=== PATIENT | female | born 1955 | race Hispanic/Latino ===

== ENCOUNTER 2017-03-10 10:46 | Inpatient (IN) | payer OTHER, SELFPAY ==
[2017-03-10 11:13] LABS: #Basophils 0.1 thou/uL (0.0-0.2); #Eosinphils 0.2 thou/uL (0.0-0.7); #Lymphocytes 3.3 thou/uL (1.20-3.40); #Monocytes 0.5 thou/uL (0.11-0.59); #Neutrophils 5.2 thou/uL (1.40-6.50); %Basophils 0.8 % (0.0-1.0); %Lymphocytes 35.7 % (21.0-51.0); %Monocytes 5.7 % (0.0-10.0); %Neutrophils 55.7 % (42.0-75.0); Hemoglobin 16.5 g/dL (12.0-16.0); Mean Corpuscular HGB CONC 33.8 g/dL (32.0-36.0); Mean Corpuscular Hemoglobin 34.3 pg (27.0-31.0); Mean Platelet Volume 8.2 fL (7.4-10.4); Platelet Count 264 thou/uL (130-400); RBC Distribution Width 12.9 % (11.5-14.5); Red Blood Cell (RBC) Count 4.81 mill/uL (4.20-5.40); White Blood Cell (WBC) Count 9.3 thou/uL (4.8-10.8)
[2017-03-10 11:21] LABS: PTT 30.8 SEC (22.9-36.1); Prothrombin Time 13.4 SEC (12.0-14.7)
[2017-03-10 11:38] LABS: ALT (SGPT) 76 U/L (8-55); AST (SGOT) 67 U/L (5-34); Albumin 4.2 g/dL (3.5-5.0); Alkaline Phosphatase 141 U/L (40-150); Anion Gap 20 mmol/L (10-20); BUN (Urea Nitrogen) 12 mg/dL (9.8-20.1); Bilirubin, Total 0.5 mg/dL (0.2-1.2); Calc. Creatinine Clearance 0 mL/min (70-130); Calcium 9.7 mg/dL (7.8-10.44); Carbon Dioxide 18 mmol/L (22-29); Chloride 108 mmol/L (98-107); Estimated GFR-MDRD 63; Globulin 4.6 g/dL (2.4-3.5); Glucose 175 mg/dL (70-105); Potassium 4.2 mmol/L (3.5-5.1); Protein, Total 8.8 g/dL (6.0-8.3); Sodium 142 mmol/L (136-145)
[2017-03-10 11:43] LABS: CKMB 0.9 ng/mL (0-6.6)
--- NOTE | 2017-03-10 12:05 | RAD ---
1 VIEW CHEST: Date: 03/10/17 COMPARISON: 08/29/09. HISTORY: Intermittent chest pain. FINDINGS: Normal cardiac silhouette. Pulmonary vessels and pulmonary hilum are normal. Costophrenic angles are clear. No mass. No consolidation. No pneumothorax or osseous abnormalities. IMPRESSION: No acute cardiopulmonary process. POS: [facility]
[2017-03-10] MEDS ORDERED: Diltiazem HCl 125 MG, Admixture Fee 1 EACH in Sodium Chloride 0.9% 100 ML IVPB SCH (12:45)
[2017-03-10 14:53] LABS: Troponin I 0.022 ng/mL (< 0.028)
[2017-03-10 15:32] VITALS: BMI 46.2
[2017-03-10] MEDS ORDERED: Ondansetron ODT 4 MG TAB SL PRN (16:42)
[2017-03-10] MEDS ORDERED: Acetaminophen 325 MG TAB PO PRN (16:42)
[2017-03-10] MEDS ORDERED: Ondansetron HCl/PF 4 MG/2 ML Vial IVP PRN ×2 (16:42→18:56)
[2017-03-10 17:45] LABS: Troponin I 0.056 ng/mL (< 0.028)
[2017-03-10] MEDS ORDERED: hydrALAZINE 20 MG/ML VIAL SLOW IVP PRN (18:56)
[2017-03-10] MEDS ORDERED: Acetaminophen 500 MG TAB PO PRN (18:56)
[2017-03-10] MEDS ORDERED: Ondansetron ODT 4 MG TAB PO PRN (18:56)
[2017-03-10] MEDS ORDERED: cloNIDine 0.1 MG TAB PO PRN (18:56)
[2017-03-10] MEDS ORDERED: Diltiazem 125 MG in Sodium Chloride 0.9% 100 ML IVPB SCH (19:00)
[2017-03-10] MEDS: Famotidine 20 MG TAB PO SCH (22:24)
[2017-03-10] MEDS: Enoxaparin Sodium 100 MG/ML SYRINGE SC SCH (22:25)
--- NOTE | 2017-03-10 22:51 | HP ---
DATE OF ADMISSION: 03/10/2017 PRIMARY CARE PHYSICIAN: Ruth Ann olmedo. CHIEF COMPLAINT: Palpitations and dizziness. HISTORY OF PRESENT ILLNESS: This is a 61-year-old female who presents to [facility] Emergency Department complaining of approximately 2-3 day history of increasing palpitations, short ness of breath, and dizziness. Patient states she has actually noticed symptoms over the last 2 yamil hs intermittently with palpitations, chest pressure lasting up to 20-30 minutes, resolving spontaneou sly with rest. Patient denied any specific chest pain, jaw, or left-arm discomfort. Patient denied any recent exposure history, travel, increased activity level, or increased caffeine intake. Patient denies any known coronary artery disease or lung or cardiac problems. Patient states that she was d iagnosed with flu approximately 2 weeks prior to this evaluation with fever, cough, and congestion. Patient does state that she has noticed the palpitations even prior to the diagnosis of the flu. Miranda de la vega denies any tobacco use, but does drink alcohol at least daily. Patient denied any strong family history of coronary artery disease, prior evaluation for personal coronary artery disease including treadmill stress testing. Patient denied taking any specific home medications or remedies. In the e mergency room, patient underwent general evaluation including initial EKG showing evidence of atrial fibrillation with rapid ventricular response with heart rates in the 160s. Patient received Cardizem bolus of 20 mg x1 dose followed by Cardizem infusion of 5 mg per hour. Patient also received aspiri n 324 mg and intravenous normal saline x1 liter. Patient was transferred to the telemetry unit for f urther evaluation. PAST MEDICAL HISTORY: 1. Alcohol use. 2. Hyperglycemia. PAST SURGICAL HISTORY: Reviewed and negative. CURRENT MEDICATIONS: Reviewed and negative. ALLERGIES: No known drug allergies. FAMILY HISTORY: No inheritable diseases per patient report. SOCIAL HISTORY: Patient is , accompanied by her and family in the hospital. Drinks 5 -6 times per week. No tobacco or illicit drug use. 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 REVIEW OF SYSTEMS: The following complete review of systems was otherwise negative, except as stated per HPI: Constitutional: Weight loss or gain, ability to conduct usual activities. Skin: Rash, i tching. Eyes: Double vision, pain. ENT/Mouth: Nose bleeding, neck stiffness, pain, tenderness. C ardiovascular: Palpitations, dyspnea on exertion, orthopnea. Respiratory: Shortness of breath, whe ezing, cough, hemoptysis, fever, or night sweats. Gastrointestinal: Poor appetite, abdominal pain, heartburn, nausea, vomiting, constipation, or diarrhea. Genitourinary: Urgency, frequency, dysuria, nocturia. Musculoskeletal: Pain, swelling. Neurologic/Psychiatric: Anxiety, depression. Allergy /Immunologic: Skin rash, bleeding tendency. PHYSICAL EXAMINATION: VITAL SIGNS: Currently, blood pressure 133/83, pulse 90, respiratory rate 18, temperature 98.2 degre es Fahrenheit, O2 saturation 95% on room air. GENERAL APPEARANCE: This is a 61-year-old female, alert and oriented x3, pleasant, conversa nt, in no acute distress. HEENT: Pupils are equal, round, and reactive to light and accommodation. Extraocular muscles are in tact. No scleral icterus, no conjunctival injection. Nares patent. OP is clear. Teeth in fair rep air. NECK: Supple, no cervical adenopathy, no thyromegaly, no carotid bruits, no JVD appreciated. Cervic al spine with full active and passive range of motion. No meningeal signs appreciated. CHEST: Lungs are clear to auscultation bilaterally. CARDIOVASCULAR: S1, S2 with irregular rate and rhythm. ABDOMEN: Obese, soft, nontender, nondistended. Bowel sounds are positive in all four quadrants. Th ere is no hepatosplenomegaly, no abdominal bruits, no rebound or guarding appreciated. EXTREMITIES: Warm and dry with fair turgor. No clubbing, cyanosis, or asymmetric edema appreciated. Pulses palpable distally at the dorsalis pedis, posterior tibial, and popliteal arteries bilaterall y. Capillary refill less than 2 seconds. NEUROLOGIC: Cranial nerves II-XII are grossly intact. No focal or lateralizing signs appreciated. PERTINENT LABORATORY AND X-RAY FINDINGS: Sodium 142, potassium 4.2, chloride 108, CO2 of 18, anion g ap 20, BUN 12, creatinine 0.91, estimated GFR 63, glucose 175, calcium 9.7. AST 67, ALT 76, alkaline phosphatase 141. Troponin I ranged between 0.010-0.056. Albumin 4.2. CBC showed a white blood jessica l count of 9.3, hemoglobin 16.5, hematocrit 49, MCV 102, platelet count 264 with normal differential. PT 13.4, INR 1.0, PTT 30.8. Portable chest x-ray dated 03/10/2017 showed no acute cardiopulmonary process. EKG dated 03/10/2017, by my interpretation shows atrial fibrillation with rapid ventricular response, heart rates in the 160s with normal R-wave progression noted in the precordial leads. Nor mal axis. T-wave changes in leads I, leads II, and aVL. T-wave changes also noted in leads V3 throu gh V6. ASSESSMENT AND PLAN: 1. Question of new-onset atrial fibrillation with rapid ventricular response. We will admit to the telemetry unit. We will continue Cardizem infusion at 5 mg per hour. Initiate Lovenox 90 mg subcuta neously q.12 hours. Check TSH, magnesium level, and 2D transthoracic echocardiogram in the a.m. Con sult Cardiology service in the a.m. for further evaluation and recommendations. Patient may benefit from ischemic workup after rate control measures. 2. Metabolic acidosis. Suspect secondary to #1. We will continue symptomatic and supportive measur es. Encourage increased free water intake. 3. Transaminitis. Suspect secondarily to increased alcohol intake. Repeat LFTs in the a.m. 4. Elevated troponin I. Suspect demand ischemic state in the context of rapid atrial fibrillation. 5. Alcohol use. Exact quantity unclear. We will continue to monitor symptomatically. Consider Ati van p.r.n. if withdrawal symptoms noted. 6. Prophylaxis. Sequential compression devices while in bed. Pepcid 20 mg p.o. b.i.d. 7. Code status is FULL. Surrogate medical decision maker is patient's spouse.
[2017-03-11 05:46] LABS: ALT (SGPT) 55 U/L (8-55); AST (SGOT) 44 U/L (5-34); Albumin 3.4 g/dL (3.5-5.0); Alkaline Phosphatase 114 U/L (40-150); Anion Gap 13 mmol/L (10-20); BUN (Urea Nitrogen) 12 mg/dL (9.8-20.1); Bilirubin, Total 0.6 mg/dL (0.2-1.2); Calc. Creatinine Clearance 123 mL/min (70-130); Carbon Dioxide 20 mmol/L (22-29); Chloride 109 mmol/L (98-107); Estimated GFR-MDRD 86; Globulin 3.8 g/dL (2.4-3.5); Glucose 102 mg/dL (70-105); Magnesium 2.3 mg/dL (1.6-2.6); Potassium 4.3 mmol/L (3.5-5.1); Protein, Total 7.2 g/dL (6.0-8.3); Sodium 138 mmol/L (136-145)
[2017-03-11 06:50] LABS: Folate (Folic Acid) 6.2 ng/mL (7.0-31.4)
[2017-03-11 07:39] LABS: Hemoglobin 15.2 g/dL (12.0-16.0); Mean Corpuscular HGB CONC 32.8 g/dL (32.0-36.0); Mean Corpuscular Hemoglobin 33.3 pg (27.0-31.0); Mean Platelet Volume 8.7 fL (7.4-10.4); Platelet Count 225 thou/uL (130-400); RBC Distribution Width 12.9 % (11.5-14.5); Red Blood Cell (RBC) Count 4.58 mill/uL (4.20-5.40); White Blood Cell (WBC) Count 8.6 thou/uL (4.8-10.8)
[2017-03-11 07:45] LABS: Band 5 % (5-11); Eosinophils 3 % (0-10); Lymphocytes 29 % (21-51); MDiff Complete? YES; Monocytes 5 % (0-10); Neutrophil 47 % (42-75); RBC Morphology Normal; Reactive Lymphocytes 11 % (0-10)
[2017-03-11] MEDS ORDERED: FLU VACC QS2017-18 36 mo. & older 0.5 ML SYRINGE IM ONE (09:00)
[2017-03-11] MEDS: Enoxaparin Sodium 100 MG/ML SYRINGE SC SCH ×2 (10:15→22:43)
[2017-03-11] MEDS: Famotidine 20 MG TAB PO SCH ×2 (10:16→22:20)
--- NOTE | 2017-03-11 14:50 | PDOC.PN ---
- Subjective Encounter Start Date: 03/11/17 Encounter Start Time: 14:45 Subjective: f/u for A-fib RVR now SR in 60's. Feels fine overall. No CP or SOB. - Objective Resuscitation Status: Resuscitation Status FULL:Full Resuscitation MAR Reviewed: Yes Vital Signs & Weight: Vital Signs (12 hours) Temp Pulse Resp BP Pulse Ox 03/11/17 12:34 98.3 F 68 14 147/68 H 99 03/11/17 07:30 97.2 F L 72 20 172/82 H 96 03/11/17 04:00 68 18 125/60 92 L Weight Weight 199 lb I&O: 03/10/17 03/11/17 03/12/17 06:59 06:59 06:59 Intake Total 655 Balance 655 Result Diagrams: 03/11/17 05:29 03/11/17 05:04 Additional Labs: Laboratory Tests 03/11/17 03/11/17 05:29 05:29 Vitamin B12 543 Folate 6.20 L TSH 3rd Generation 7.8704 H Radiology Reviewed by me: Yes (2D echo - pending) EKG Reviewed by me: Yes (Tele - SR in 60's) Phys Exam - Physical Examination Constitutional: NAD HEENT: PERRLA, oral pharynx no lesions Neck: no JVD, supple Respiratory: no wheezing, clear to auscultation bilateral Cardiovascular: RRR Gastrointestinal: soft, non-tender, no distention, positive bowel sounds Musculoskeletal: no edema, pulses present Neurological: normal sensation, moves all 4 limbs Psychiatric: A&O x 3 Skin: normal turgor, cap refill <2 seconds Dx/Plan (1) Atrial fibrillation with RVR Code(s): I48.91 - UNSPECIFIED ATRIAL FIBRILLATION Status: Acute Comment: Converted to SR, d/c Cardizem gtt and start Diltiazem 30mg po q6h, await 2D echo and Cardiology consult (2) Metabolic acidosis Code(s): E87.2 - ACIDOSIS Status: Acute Comment: Improved (3) Transaminitis Code(s): R74.0 - NONSPEC ELEV OF LEVELS OF TRANSAMNS & LACTIC ACID DEHYDRGNSE Status: Chronic (4) Alcohol use Code(s): Z78.9 - OTHER SPECIFIED HEALTH STATUS Status: Chronic Comment: Cessation counseling, MVI with Folate daily (5) Hypothyroidism Code(s): E03.9 - HYPOTHYROIDISM, UNSPECIFIED Status: Chronic Comment: Untreated, check FT4 level, likely low-dose Levothyroxine for d/c - Plan out of bed/ambulate, DVT proph w/SCDs Stable overall -: Convert Diltiazem 30mg PO q6h -: Continue Lovenox -: Await 2D echo results -: AM lab: FT4 * .
--- NOTE | 2017-03-11 20:41 | CON ---
DATE OF CONSULTATION: 03/11/2017 INDICATION FOR CONSULTATION: A 61-year-old female with new onset atrial fibrillation with rapid vent ricular response. HISTORY OF PRESENT ILLNESS: This is a very pleasant 61-year-old female who has been noticing some re cent palpitations, shortness of breath, and dizziness. She presented to the emergency room when she knows her heart rate is getting relatively fast and she was found to be in atrial fibrillation with r apid ventricular response. She also had some chest discomfort may be due to the rapid heart rate. S he has had some symptoms in the last couple months, so she thought she had some indigestion with the palpitations, but thought it was more reflux in nature. At this time, she has been converted back to sinus rhythm with diltiazem. She was given IV diltiazem and converted back to sinus rhythm and has not been on p.o., has had no further episodes. She had no previous cardiac history that she is aware of. PAST MEDICAL HISTORY: Is not significant for any significant operations or illnesses. She has had a history of hypertension, diabetes or hypercholesterolemia. Her blood sugar has been elevated. We a lso noticed that she had slight what appears to be hypothyroidism, but she was unaware of this. SOCIAL HISTORY: She is . She has 2 children with no heart disease. She has no tobacco abuse , but has been drinking alcohol. She had Carla the day before admission. FAMILY HISTORY: Mother had valvular heart disease in her 50s, underwent surgical correction for a va lvular disease. ALLERGIES: None. REVIEW OF SYSTEMS: Twelve point review of systems unremarkable except what was noted in the history of present illness. PHYSICAL EXAMINATION: GENERAL: Reveals a well-developed, well-nourished female. VITAL SIGNS: Blood pressure 180/76, heart rate 68 and regular. She is afebrile. HEENT: Shows head to be normocephalic and atraumatic. Carotid pulses are present. There are no bru its. No JVD. The thyroid is not enlarged. Oral mucosa was pink and moist. CHEST: Clear to auscultation. No rales, rhonchi, or wheezing. CARDIOVASCULAR: Exam reveals a regular rhythm with normal S1 and S2. There is no S3 or S4. There w ere no significant murmurs, heaves, thrills, bruits or rubs noted. ABDOMEN: Shows obesity with positive bowel sounds. No organomegaly, mass or tenderness were noted. Femoral pulses are present. EXTREMITIES: Showed no clubbing, cyanosis or edema. Pedal pulses are present. NEUROLOGIC: The patient appears to be fully intact. There is no evidence of any abnormalities. SKIN: Warm and dry. Her EKG at this time shows a regular rhythm. Previously, she had atrial fibrillation with rapid vent ricular response with some nonspecific ST segment changes with the heart rate was very rapid. These have since resolved. Her cardiac enzymes are indeterminate, most likely associated with a rapid hear t rate where she was 0.01 and troponin I has increased to 2.056 with MB of 0.9. This does not indica te myocardial infarction, most likely just is due to demand ischemia. At this time, she remains stab le. I have reviewed her echocardiogram which showed an ejection fraction of 60% to 65% with mild luis ral and tricuspid valve regurgitation. The left atrium is slightly dilated at 4.2 cm. Overall, ther e were no wall motion abnormalities noted. Laboratory data otherwise was unremarkable except for the hypothyroidism and noted that her liver fun ction showed her AST and ALT were slightly elevated. IMPRESSION: 1. Atrial fibrillation with rapid ventricular response which was converted back to normal sinus rhyt hm. I would continue p.o. diltiazem in a low dose. We will see her back in the office in the next f ew weeks for further evaluation. At some point in time, she can undergo an outpatient stress test to see whether or not she has any evidence of underlying ischemia that I suspect this is due to alcohol use and I have advised her to stop drinking. 2. Abnormal liver function studies, most likely associated also with alcohol. 3. Slight elevation of cardiac enzymes. Again, most likely this is associated with atrial fibrillat ion with rapid ventricular response. 4. History of alcohol abuse and this will need to be curtailed and I would advise at this time to st op drinking entirely. Thank you very much for consultation. We would be more than happy to see the patient as an outpatien t, but from the cardiac standpoint, she is stable for discharge today.
[2017-03-12] MEDS: Famotidine 20 MG TAB PO SCH (08:27)
[2017-03-12] MEDS: Enoxaparin Sodium 100 MG/ML SYRINGE SC SCH (08:28)
--- NOTE | 2017-03-12 08:57 | PDOC.CTH ---
Cardiology Progress Note - Subjective The pt seen and examined. No overnight events. No cardiac complaints. - Objective Vital Signs Temp Pulse Resp BP Pulse Ox 03/12/17 07:25 97.9 F 65 18 95 03/12/17 07:13 97.9 F 65 18 136/76 95 03/12/17 06:15 71 18 157/72 H 95 03/12/17 01:41 71 16 122/62 Weight 199 lb 03/11/17 03/12/17 03/13/17 06:59 06:59 06:59 Intake Total 655 480 Balance 655 480 - Physical Examination Heart: RRR Abdomen: soft Extremities: other: (no edemas) - Telemetry Telemetry Rhythm: SR - Labs Result Diagrams: 03/11/17 05:29 03/11/17 05:04 Troponin/CKMB CK-MB (CK-2) 0.9 ng/mL (0-6.6) 03/10/17 11:02 Troponin I 0.056 ng/mL (< 0.028) H 03/10/17 17:12 - Assessment/Plan 1. AFib with RVR - remains in SR with Diltiazem 30mg po q6h and ASA 81mg daily; Echo on 03/10/17 showed EF 60-65%, mild LAE, and mild MR 2. Hypothyroidism - TSH is elevated today. The pt will be d/pamela home with low- dose Levothyroxine per PCP's reprot 3. Abn. LFT level due to ETOH abuse - improving; Strongly recommend ETOH cessation to the pt and family MAR reviewed * From cardiac standpoint, the pt is stable to d/pamela home with Diltiazem and ASA 81 mg daily * The pt will have outpt stress test and f/u with Dr Gillespie' office within 2-4 wks. Review of Systems - Review of Systems Constitutional: reports: no symptoms reported EENTM: reports: no symptoms reported Respiratory: reports: no symptoms reported Cardiac (ROS): reports: no symptoms reported ABD/GI: reports: no symptoms reported : reports: no symptoms reported Musculoskeletal: reports: no symptoms reported
[2017-03-12] MEDS ORDERED: Multivit, Therapeutic 1 TAB PO SCH (09:00)
[2017-03-12 12:10] VITALS: BP 163/73; TEMP 98
--- NOTE | 2017-03-12 12:56 | DIS ---
DATE OF ADMISSION: 03/10/2017 DATE OF DISCHARGE: 03/12/2017 DISCHARGE DIAGNOSES: 1. Paroxysmal atrial fibrillation with rapid ventricular response, converting to sinus mechanism. 2. Metabolic acidosis, mild, improving. 3. Transaminitis, likely secondary to alcohol use. 4. Alcohol use. CONSULTATIONS: Dr. Gillespie with Cardiology Service. PERTINENT LABORATORY AND X-RAY FINDINGS: Carbon dioxide level ranged between 18-20. Calcium ranged between 9.0-9.7, magnesium 2.3, AST ranged between 44-67, ALT ranged between 55-76, troponin I ranged between 0.010-0.056. BNP 64. Vitamin B12 level 543, folate 6.2. TSH 7.87 with free T4 level of 0. 93. CBC showed a MCV ranged between 101-102. Stool Hemoccult negative x1 on 03/11/2017. Portable c hest x-ray dated 03/10/2017 showed no acute cardiopulmonary process. A 2D transthoracic echocardiogram dated 03/10/2017 showed ejection fraction of 60% to 65%. Mild left atrial enlargement. Mild mitral valve regurgitation. HOSPITAL COURSE: Patient was initially admitted to the telemetry unit after presenting with palpitat ions, shortness of breath with associated atrial fibrillation with rapid ventricular response. The p atient presented with paroxysmal atrial fibrillation and apparent new onset atrial fibrillation place d on Cardizem infusion. The patient was also initiated on Lovenox for anticoagulation. The patient converted to sinus mechanism on the Cardizem infusion, at which point Cardizem was transitioned to or al regimen at 120 mg daily. The patient underwent general evaluation by the Cardiology Service with recommendations for rate control measures after conversion to sinus mechanism and a daily aspirin 81 mg. Patient was also cautioned regarding the use of alcohol and its contribution to potential recurr ence of atrial fibrillation. Overall, the patient remained clinically stable to remainder the hospit al course with telemetry monitoring showing current sinus mechanism. The patient is stable and ready for discharge on 03/12/2017. DISCHARGE MEDICATIONS: 1. Diltiazem CD 120 mg 1 tab p.o. daily. 2. Enteric coated aspirin 81 mg 1 tab p.o. daily. 3. Multivitamin 1 tab p.o. daily. FOLLOWUP: The patient will follow up with Dr. Gillespie with [facility] 2-3 weeks a fter discharge. The patient also given a list of community health clinics in the [facility] f or establishment of primary care. CONDITION ON DISCHARGE: Stable. ACTIVITY: Ad jacky. DIET: Heart healthy. CODE STATUS: FULL. DISPOSITION: Home 03/12/2017.
[2017-03-12] MEDS ORDERED: Folic Acid 1 MG TAB PO SCH (16:00)
== END 2017-03-12 13:27 | disposition home or self-care (01) | DRG 309 ==
LOC: ERS 10:46 → ERHOLD 13:23 → 2NO 15:39
PROVIDERS: ADMIT Family Medicine; ATTEND Family Medicine
DX: I48.0 Paroxysmal atrial fibrillation (principal); E87.2 Acidosis; F10.188 Alcohol abuse with other alcohol-induced disorder; I10 Essential (primary) hypertension; E11.9 Type 2 diabetes mellitus without complications; E03.9 Hypothyroidism, unspecified; E78.00 Pure hypercholesterolemia, unspecified; R74.0 Nonspecific elevation of levels of transaminase and lactic acid dehydrogenase [LDH]; I08.1 Rheumatic disorders of both mitral and tricuspid valves; Z79.82 Long term (current) use of aspirin; Z82.49 Family history of ischemic heart disease and other diseases of the circulatory system
CPT/HCPCS: 36415; 71045; 80053; 82274; 82553; 82607; 82746; 83735; 83880; 84439; 84443; 84484; 85007; 85025; 85027; 85610; 85730; 93005; 93306; 96361; 96365; 96366; 96374; J1650; J7050

== ENCOUNTER 2018-05-27 09:36 | Outpatient (CLI) | payer OTHER ==
--- NOTE | 2018-05-27 10:41 | MMO ---
Bilateral MAMMO Bilat Screen DDI+ANAT. CLINICAL HISTORY: Patient is 62 years old and is seen for screening. The patient has no family history of breast cancer. The patient has no personal history of cancer. VIEWS: The views performed were: bilateral craniocaudal with tomosynthesis and bilateral mediolateral oblique with tomosynthesis. FILMS COMPARED: The present examination has been compared to a prior imaging study performed at [facility] on 03/09/2007. MAMMOGRAM FINDINGS: There are scattered fibroglandular densities. There is a new irregular mass measuring 19 millimeters with spiculated margins seen in the anterior region of the right breast at 12 o'clock. In the left breast, there are no suspicious masses, calcifications or areas of architectural distortion. IMPRESSION: NEW MASS IN THE RIGHT BREAST REQUIRES ADDITIONAL EVALUATION. AN ULTRASOUND EXAM IS RECOMMENDED. THE RESULTS OF THIS EXAM WERE SENT TO THE PATIENT. ACR BI-RADS Category 0 - Incomplete: Need additional imaging evaluation. [facility] will notify the patient of the need for additional imaging services. MAMMOGRAPHY NOTE: 1. A negative mammogram report should not delay a biopsy if a dominant of clinically suspicious mass is present. 2. Approximately 10% to 15% of breast cancers are not detected by mammography. 3. Adenosis and dense breasts may obscure an underlying neoplasm.
== END 2018-05-27 09:37 | disposition home or self-care (01) ==
LOC: BICMAMMO 09:36
PROVIDERS: ATTEND Family Medicine
DX: Z12.31 Encounter for screening mammogram for malignant neoplasm of breast (principal); N63.11 Unspecified lump in the right breast, upper outer quadrant
CPT/HCPCS: 77063; 77067

== ENCOUNTER 2018-06-03 14:35 | Outpatient (CLI) | payer OTHER ==
--- NOTE | 2018-06-03 17:11 | ULT ---
RIGHT BREAST ULTRASOUND: HISTORY: Abnormal mammogram from 05/27/2018. FINDINGS: There is a 9 x 5 x 9 mm, irregular, shadowing mass at the 12 o'clock position of the right breast, 1 cm from the nipple, corresponding to the area of architectural distortion on the mammogram of 019. Sonographic evaluation of the right axilla demonstrates a 1.4 x 0.8 mm lymph node. IMPRESSION: BI-RADS category 5-Highly suggestive of malignancy. Ultrasound guided biopsy is recommended. Discussed in person with the patient at 2:52 p.m. POS: [facility]
== END 2018-06-03 14:36 | disposition home or self-care (01) ==
LOC: BICULT 14:35
PROVIDERS: ATTEND Family Medicine
DX: N63.11 Unspecified lump in the right breast, upper outer quadrant (principal)

== ENCOUNTER → 2018-07-15 | Day surgery (SDC) | payer OTHER ==
--- NOTE | 2018-07-15 13:52 | MMO ---
Right Breast MAMMO Unilat Diag DDI RT. CLINICAL HISTORY: Patient is 62 years old and is seen for diagnostic exam. VIEWS: The views performed were: . FILMS COMPARED: The present examination has been compared to prior imaging studies performed at [facility] on 03/09/2007, 05/27/2018 and 06/03/2018. MAMMOGRAM FINDINGS: There are scattered fibroglandular densities. There is a biopsy clip seen in the right breast. IMPRESSION: BIOPSY CLIP IN THE RIGHT BREAST IS CONFIRMED UTILIZING POST PROCEDURE MAMMOGRAM. THE RESULTS OF THIS EXAM WERE SENT TO THE PATIENT. MAMMOGRAPHY NOTE: 1. A negative mammogram report should not delay a biopsy if a dominant of clinically suspicious mass is present. 2. Approximately 10% to 15% of breast cancers are not detected by mammography. 3. Adenosis and dense breasts may obscure an underlying neoplasm.
--- NOTE | 2018-07-15 15:46 | ULT ---
ULTRASOUND GUIDED BIOPSY OF THE RIGHT BREAST: COMPARISON: 06/03/2018. HISTORY: Spiculated mass in the right breast. FINDINGS: Successful ultrasound-guided biopsy. Four 14-gauge core biopsy samples were obtained and placed dire ctly in formalin. Postprocedure biopsy clip was placed and is adjacent to the region of concern on t he CC and MLO projection. TECHNIQUE: Consent was obtained to perform an ultrasound-guided biopsy of the right breast. The lesion at the 1 2 o'clock position was identified. The skin was prepped and draped in sterile fashion. 1% Lidocaine , buffered with sodium bicarbonate, was used for local anesthesia. Under ultrasound guidance, four 1 4-gauge core biopsy samples were obtained and placed directly in formalin. Postbiopsy clip was place d. Hemostasis was achieved with manual pressure. Postbiopsy mammogram was performed which demonstra andi the clip to be adjacent to the region of architectural distortion noted on prior mammogram. IMPRESSION: Successful biopsy of the right breast with ultrasound guidance. POS: [facility]
== END ==
LOC: BICULT 12:27
PROVIDERS: ATTEND Family Medicine
PROC: 0HBT3ZX Excision of Right Breast, Percutaneous Approach, Diagnostic (ICD-10-PCS; principal; 2018-07-15)
DX: C50.911 Malignant neoplasm of unspecified site of right female breast (principal)
CPT/HCPCS: 19083; 88305; 88341; 88342

== ENCOUNTER 2018-08-16 09:06 | Outpatient (CLI) | payer OTHER, SELFPAY ==
[2018-08-16 14:07] LABS: #Basophils 0.1 thou/uL (0.0-0.2); #Eosinphils 0.2 thou/uL (0.0-0.7); #Lymphocytes 2.7 thou/uL (1.20-3.40); #Monocytes 0.3 thou/uL (0.11-0.59); #Neutrophils 4.7 thou/uL (1.40-6.50); %Lymphocytes 33.8 % (21.0-51.0); %Monocytes 3.7 % (0.0-10.0); %Neutrophils 59.5 % (42.0-75.0); Hemoglobin 15.2 g/dL (12.0-16.0); Mean Corpuscular HGB CONC 34.7 g/dL (32.0-36.0); Mean Corpuscular Hemoglobin 33.9 pg (27.0-31.0); Mean Corpuscular Volume 97.9 fL (78.0-98.0); Mean Platelet Volume 8.4 fL (7.4-10.4); Platelet Count 258 thou/uL (130-400); RBC Distribution Width 12.9 % (11.5-14.5); Red Blood Cell (RBC) Count 4.48 mill/uL (4.20-5.40)
[2018-08-16 14:27] LABS: Anion Gap 16 mmol/L (10-20); BUN (Urea Nitrogen) 11 mg/dL (9.8-20.1); Calc. Creatinine Clearance 0 mL/min (70-130); Calcium 9.5 mg/dL (7.8-10.44); Carbon Dioxide 23 mmol/L (23-31); Chloride 105 mmol/L (98-107); Estimated GFR-MDRD 67; Glucose 127 mg/dL (80-115); Sodium 140 mmol/L (136-145)
== END 2018-08-16 09:07 | disposition home or self-care (01) ==
LOC: LABBT 09:06
PROVIDERS: ATTEND Specialist
DX: Z01.818 Encounter for other preprocedural examination (principal); C50.911 Malignant neoplasm of unspecified site of right female breast
CPT/HCPCS: 80048; 85025; 93005; 93010

== ENCOUNTER 2018-10-19 13:52 | Outpatient (CLI) | payer OTHER ==
[2018-10-19 15:10] LABS: #Eosinphils 0.2 thou/uL (0.0-0.7); #Lymphocytes 3.4 thou/uL (1.20-3.40); #Monocytes 0.6 thou/uL (0.11-0.59); #Neutrophils 5.2 thou/uL (1.40-6.50); %Basophils 0.5 % (0.0-1.0); %Eosinophils 2.6 % (0.0-10.0); %Lymphocytes 35.6 % (21.0-51.0); %Monocytes 6.2 % (0.0-10.0); %Neutrophils 55.1 % (42.0-75.0); Hemoglobin 14.9 g/dL (12.0-16.0); Mean Corpuscular HGB CONC 34.8 g/dL (32.0-36.0); Mean Corpuscular Hemoglobin 33.8 pg (27.0-31.0); Mean Corpuscular Volume 97.1 fL (78.0-98.0); Mean Platelet Volume 8.6 fL (7.4-10.4); Platelet Count 261 thou/uL (130-400); RBC Distribution Width 12.8 % (11.5-14.5); Red Blood Cell (RBC) Count 4.39 mill/uL (4.20-5.40); White Blood Cell (WBC) Count 9.5 thou/uL (4.8-10.8)
[2018-10-19 15:30] LABS: Anion Gap 12 mmol/L (10-20); BUN (Urea Nitrogen) 16 mg/dL (9.8-20.1); Calc. Creatinine Clearance 0 mL/min (70-130); Calcium 9.5 mg/dL (7.8-10.44); Carbon Dioxide 23 mmol/L (23-31); Chloride 107 mmol/L (98-107); Estimated GFR-MDRD 62; Glucose 98 mg/dL (80-115); Potassium 3.8 mmol/L (3.5-5.1); Sodium 138 mmol/L (136-145)
--- NOTE | 2018-10-21 16:52 | EKG ---
Test Reason : Blood Pressure : / mmHG Vent. Rate : 082 BPM Atrial Rate : 082 BPM P-R Int : 130 ms QRS Dur : 074 ms QT Int : 392 ms P-R-T Axes : 041 000 000 degrees QTc Int : 457 ms Normal sinus rhythm Nonspecific T wave abnormality Abnormal ECG Confirmed by MAGALI HARRELL ([id number]) on 10/21/2018 4:52:40 PM Referred By: ERVIN Confirmed By:MAGALI HARRELL
== END 2018-10-19 13:53 | disposition home or self-care (01) ==
LOC: LABBT 13:52
PROVIDERS: ATTEND Specialist
DX: Z01.818 Encounter for other preprocedural examination (principal); C50.911 Malignant neoplasm of unspecified site of right female breast
CPT/HCPCS: 80048; 85025; 93005; 93010

== ENCOUNTER 2018-10-21 07:25 | Day surgery (SDC) | payer OTHER ==
[2018-10-19 14:03] VITALS: BMI 45.8
--- NOTE | 2018-10-21 09:35 | NM ---
NM Lymphoscintigraphy HISTORY: Malignant neoplasm of unspecified site of the right female breast. RADIOPHARMACEUTICAL: 409 uCi of technetium 99m filtered sulfur colloid. Right periareolar injection in divided doses. FINDINGS: There is visualization of at least 2 lymph nodes in the right axilla. IMPRESSION: [place] lymph node(s) in the right axilla.
[2018-10-21] MEDS ORDERED: Ketorolac Tromethamine 30 MG/ML VIAL ONE (10:24)
[2018-10-21] MEDS ORDERED: Bupivacaine/Epinephrine 0.25% 30 ML VIAL ONE ×2 (11:17→12:01)
[2018-10-21] MEDS ORDERED: Isosulfan Blue 50 MG/5 ML VIAL ONE (11:17)
[2018-10-21] MEDS ORDERED: Midazolam HCl 2 mg/2 ml Vial ONE (11:27)
[2018-10-21] MEDS ORDERED: Fentanyl 100 MCG/2 ML VIAL ONE (11:27)
--- NOTE | 2018-10-21 12:56 | MMO ---
EXAM: Specimen radiograph HISTORY: Right breast cancer at the 12:00 position COMPARISON: Right breast ultrasound 07/15/2018 FINDINGS: A specimen radiograph was performed. This shows a wire within a spiculated mass. An adjacen t surgical clip is seen. The surgical clip and mass are seen in the central aspect of the surgical specimen. IMPRESSION: Clip and mass seen within the surgical specimen
[2018-10-21] MEDS ORDERED: PROPOFOL 200 MG/20 ML VIAL ONE (12:59)
[2018-10-21] MEDS ORDERED: Ondansetron PF 4 MG/2 ML Vial ONE (12:59)
[2018-10-21] MEDS ORDERED: Lidocaine 1% PF 5 ML VIAL ONE (12:59)
[2018-10-21] MEDS ORDERED: Dexamethasone 20 MG/5 ML VIAL ONE (12:59)
--- NOTE | 2018-10-22 10:50 | OP ---
DATE OF PROCEDURE: 10/21/2018 PREOPERATIVE DIAGNOSIS: Right breast cancer. POSTOPERATIVE DIAGNOSIS: Right breast cancer. PROCEDURES PERFORMED: Right breast ultrasound-guided needle localization, right breast lumpectomy, and right axillary sentinel lymph node biopsy. ANESTHESIA: General endotracheal. INDICATIONS: The patient is a 63-year-old obese female. She presents with right breast cancer. She is taken to the operating room at this time for lumpectomy and sentinel node biopsy. Preoperative lymphoscintigraphy has been performed, identifying sentinel lymph nodes within the right axilla. DESCRIPTION OF OPERATION: Informed consent was obtained. The patient was taken to the operating room, where general endotracheal anesthesia was obtained with the patient in supine position. 3 mL of isosulfan blue was injected in the right periareolar subdermal tissue, and the breast was massaged for 5 minutes. It was then prepped with ChloraPrep along with the right axilla, and the area was draped in usual sterile fashion. Attention was turned to the axilla first. A transverse low axillary incision was created. Dissection was carried through skin and subcutaneous tissue. Dissection was carried into the axilla, guided by the Neoprobe, identifying areas of maximum radio intensity. I was able to identify and remove three separate sentinel lymph nodes from within the axilla. Two of these were blue-stained as well. Each lymph node was dissected circumferentially, and all investing lymphatics were divided between clamps and 3-0 silk ties. The lymph nodes were passed off for permanent evaluation by Pathology. The axilla was irrigated, and hemostasis was meticulously achieved. It was closed in layers with 3-0 and 4-0 Monocryl, and additional local anesthetic was infiltrated during closure. Attention was turned to the breast. Ultrasound was utilized to identify the obvious malignancy at the 12 o'clock radian just above the nipple-areolar complex. The location of the malignancy was marked relative to the skin in a grid fashion. I then placed a localizing wire in a medial to lateral fashion through the malignancy. Local anesthetic was infiltrated widely. A transverse incision was created based on the wire entry site. Dissection was carried through skin and subcutaneous tissue down to the breast. I raised flaps in each direction once I was a centimeter deep into the breast tissue. Dissection was begun on the medial aspect behind the wire, and dissection was then carried deeply so as to come underneath the wire in a medial to lateral fashion. A wide core of tissue was dissected around the localizing wire, also in a medial to lateral fashion. The specimen was then removed from within the breast with the wire intact. It was then oriented with sutures and passed off the field for specimen mammography. The x-ray revealed the wire to be through the malignancy and the clip was present. Meticulous hemostasis was obtained within the wound. It was closed in layers with 3-0 and 4-0 Monocryl. Dermabond was placed externally as well as on the axillary incision. Additional local anesthetic was infiltrated at each wound. There were no complications. Blood loss was negligible. The patient tolerated the procedure well and was taken to recovery room in stable condition. Job ID: [id number]
== END 2018-10-21 15:15 | disposition home or self-care (01) ==
LOC: SDC 07:25
PROVIDERS: ATTEND Specialist
PROC: 0HBT0ZZ Excision of Right Breast, Open Approach (ICD-10-PCS; principal; 2018-10-21)
PROC: 07B50ZX Excision of Right Axillary Lymphatic, Open Approach, Diagnostic (ICD-10-PCS; principal; 2018-10-21)
DX: C50.811 Malignant neoplasm of overlapping sites of right female breast (principal); E66.9 Obesity, unspecified; Z68.42 Body mass index [BMI] 45.0-49.9, adult; Z17.0 Estrogen receptor positive status [ER+]; Z79.82 Long term (current) use of aspirin; Z79.899 Other long term (current) drug therapy
CPT/HCPCS: 76098; 78195; 88307; 88342; A9541; J0131; J0690; J1100; J1885; J2001; J2250; J2405; J2704; J3010; Q9968

== ENCOUNTER 2019-12-28 18:09 | Emergency (ER) | payer OTHER, SELFPAY ==
[2019-12-28] MEDS ORDERED: Acetaminophen 500 MG TAB ONE (18:44)
--- NOTE | 2019-12-28 19:15 | RAD ---
Chest one view HISTORY: Cough. Congestion. COMPARISON: 03/10/2017. FINDINGS: Cardiac silhouette is magnified by projection. Pulmonary vasculature is unremarkable. Mediastinum is midline. No lobar consolidation or evidence of pneumothorax. Radiopaque buttons overli e the mid mediastinum. IMPRESSION : No active cardiopulmonary abnormalities are demonstrated.
[2019-12-28] MEDS ORDERED: Albuterol 200 PUFF (6.7GM INHALER) ONE (19:52)
== END 2019-12-28 21:11 | disposition home or self-care (01) ==
LOC: ERS 18:09
DX: J06.9 Acute upper respiratory infection, unspecified (principal); I10 Essential (primary) hypertension
CPT/HCPCS: 71045; 94664

== ENCOUNTER 2021-11-20 09:37 | Inpatient (IN) | payer SELFPAY ==
[2021-11-20] MEDS ORDERED: Aspirin Chewable 81 MG TAB ONE (10:00)
[2021-11-20] MEDS ORDERED: Diltiazem 125 MG/25 ML ONE ×2 (10:00→10:13)
[2021-11-20] MEDS ORDERED: Enoxaparin Sodium 100 MG/ML SYRINGE ONE (10:14)
[2021-11-20 10:36] LABS: #Basophils 0.1 thou/uL (0.0-0.2); #Eosinphils 0.2 thou/uL (0.0-0.7); #Lymphocytes 3.2 thou/uL (1.20-3.40); #Monocytes 0.7 thou/uL (0.11-0.59); #Neutrophils 5.3 thou/uL (1.40-6.50); %Basophils 0.7 % (0.0-1.0); %Eosinophils 1.7 % (0.0-10.0); %Lymphocytes 34.2 % (21.0-51.0); %Neutrophils 56.4 % (42.0-75.0); Hemoglobin 15.5 g/dL (12.0-16.0); Mean Corpuscular HGB CONC 32.8 g/dL (32.0-36.0); Mean Corpuscular Hemoglobin 33.3 pg (27.0-31.0); Mean Platelet Volume 8.5 fL (7.4-10.4); Platelet Count 242 thou/uL (130-400); RBC Distribution Width 13.1 % (11.5-14.5); Red Blood Cell (RBC) Count 4.67 mill/uL (4.20-5.40); White Blood Cell (WBC) Count 9.4 thou/uL (4.8-10.8)
[2021-11-20 10:41] LABS: ALT (SGPT) 32 U/L (8-55); AST (SGOT) 38 U/L (5-34); Albumin 4.2 g/dL (3.4-4.8); Alkaline Phosphatase 86 U/L (40-110); Anion Gap 14 mmol/L (10-20); BUN (Urea Nitrogen) 10 mg/dL (9.8-20.1); Bilirubin, Total 1.1 mg/dL (0.2-1.2); CK (CPK) 89 U/L (29-168); Calc. Creatinine Clearance 0 mL/min (70-130); Calcium 9.3 mg/dL (7.8-10.44); Carbon Dioxide 22 mmol/L (23-31); Chloride 105 mmol/L (98-107); Estimated GFR 80; Globulin 3.8 g/dL (2.4-3.5); Glucose 116 mg/dL (80-115); Lipase 47 U/L (8-78); Potassium 3.8 mmol/L (3.5-5.1); Sodium 137 mmol/L (136-145)
[2021-11-20 10:52] LABS: Prothrombin Time 13.6 sec (12.0-14.7)
[2021-11-20 10:53] LABS: PTT 36.3 sec (22.9-36.1)
[2021-11-20] MEDS ORDERED: Diltiazem 125 MG in Sodium Chloride 0.9% 100 ML IVPB SCH (12:45)
[2021-11-20] MEDS ORDERED: Ondansetron ODT 4 MG TAB PO PRN (12:49)
[2021-11-20] MEDS ORDERED: Guaifenesin DM 100-10/5 ML UDCUP PO PRN (12:49)
[2021-11-20] MEDS ORDERED: Acetaminophen 325 MG TAB PO PRN (12:49)
[2021-11-20] MEDS ORDERED: Senokot S 8.6-50 MG TAB PO PRN (12:49)
[2021-11-20 13:25] LABS: Hemoglobin A1c 5.3 % (4.0-6.0)
[2021-11-20 14:18] LABS: Magnesium 1.7 mg/dL (1.6-2.6)
[2021-11-20 15:59] VITALS: BMI 48.4
[2021-11-20 17:44] LABS: SARS-CoV-2 NAA Rapid Test Not Detected (NotDetected)
[2021-11-20] MEDS: Enoxaparin Sodium 100 MG/ML SYRINGE SC SCH (22:07)
[2021-11-20] MEDS: Famotidine 20 MG TAB PO SCH (22:07)
[2021-11-21 04:46] LABS: #Eosinphils 0.2 thou/uL (0.0-0.7); #Lymphocytes 2.4 thou/uL (1.20-3.40); #Monocytes 0.5 thou/uL (0.11-0.59); #Neutrophils 4.7 thou/uL (1.40-6.50); %Basophils 0.5 % (0.0-1.0); %Eosinophils 3.2 % (0.0-10.0); %Monocytes 6.2 % (0.0-10.0); %Neutrophils 60.1 % (42.0-75.0); Hemoglobin 13.8 g/dL (12.0-16.0); Mean Corpuscular HGB CONC 33.5 g/dL (32.0-36.0); Mean Corpuscular Hemoglobin 34.4 pg (27.0-31.0); Mean Platelet Volume 8.2 fL (7.4-10.4); Platelet Count 217 thou/uL (130-400); White Blood Cell (WBC) Count 7.9 thou/uL (4.8-10.8)
[2021-11-21 05:08] LABS: Anion Gap 14 mmol/L (10-20); BUN (Urea Nitrogen) 14 mg/dL (9.8-20.1); Calc. Creatinine Clearance 113 mL/min (70-130); Calcium 8.7 mg/dL (7.8-10.44); Carbon Dioxide 18 mmol/L (23-31); Cardiac Risk 3.3 (Less than 4.5); Chloride 108 mmol/L (98-107); Cholesterol 154 mg/dl (< 200 Desired); Estimated GFR 89; Glucose 107 mg/dL (80-115); HDL Cholesterol 47 mg/dL (>60 Neg Risk); LDL Cholesterol, Calculated 88 mg/dL; Potassium 3.7 mmol/L (3.5-5.1); Sodium 136 mmol/L (136-145); Triglycerides 95 mg/dL (Less than 150)
[2021-11-21] MEDS: Levothyroxine Sodium 25 MCG TAB PO SCH (05:47)
[2021-11-21] MEDS: Aspirin 81 mg Enteric Coated Tablet PO SCH (08:03)
[2021-11-21] MEDS: Famotidine 20 MG TAB PO SCH ×2 (08:03→20:36)
[2021-11-21] MEDS: Enoxaparin Sodium 100 MG/ML SYRINGE SC SCH ×2 (08:04→20:36)
[2021-11-21] MEDS: Cholecalciferol 1,000 UNITS (25 MCG) TAB PO SCH (08:04)
[2021-11-21] MEDS ORDERED: FLU VACC QS2022-23(6MOS UP)/PF 60 MCG/0.5 ML SYRINGE IM ONE (09:00)
[2021-11-21] MEDS ORDERED: Furosemide 20 MG TAB PO SCH (09:00)
[2021-11-21] MEDS: Furosemide 40 MG/4 ML VIAL SLOW IVP SCH (14:27)
[2021-11-22] MEDS: Furosemide 40 MG/4 ML VIAL SLOW IVP SCH ×2 (06:08→14:56)
[2021-11-22] MEDS: Levothyroxine Sodium 25 MCG TAB PO SCH (06:08)
[2021-11-22] MEDS: Aspirin 81 mg Enteric Coated Tablet PO SCH (08:57)
[2021-11-22] MEDS: Cholecalciferol 1,000 UNITS (25 MCG) TAB PO SCH (08:57)
[2021-11-22] MEDS: Famotidine 20 MG TAB PO SCH ×2 (08:57→21:59)
[2021-11-22] MEDS: Enoxaparin Sodium 100 MG/ML SYRINGE SC SCH (08:58)
[2021-11-22] MEDS ORDERED: FLU VACC QS2022-23(6MOS UP)/PF 60 MCG/0.5 ML SYRINGE IM ONE (09:00)
[2021-11-22] MEDS: Apixaban 5 MG TAB PO SCH (21:59)
[2021-11-23] MEDS: Furosemide 40 MG/4 ML VIAL SLOW IVP SCH (06:22)
[2021-11-23] MEDS: Levothyroxine Sodium 25 MCG TAB PO SCH (06:22)
[2021-11-23] MEDS: Famotidine 20 MG TAB PO SCH ×2 (08:26→21:23)
[2021-11-23] MEDS: Cholecalciferol 1,000 UNITS (25 MCG) TAB PO SCH (08:26)
[2021-11-23] MEDS: Apixaban 5 MG TAB PO SCH ×2 (08:26→21:22)
[2021-11-23] MEDS: Aspirin 81 mg Enteric Coated Tablet PO SCH (08:27)
[2021-11-23] MEDS: Diltiazem HCl CD 300 mg Capsule PO SCH (08:27)
[2021-11-23 11:28] LABS: Anion Gap 13 mmol/L (10-20); BUN (Urea Nitrogen) 15 mg/dL (9.8-20.1); Calc. Creatinine Clearance 107 mL/min (70-130); Calcium 9.8 mg/dL (7.8-10.44); Carbon Dioxide 22 mmol/L (23-31); Chloride 104 mmol/L (98-107); Estimated GFR 83; Glucose 88 mg/dL (80-115); Potassium 3.8 mmol/L (3.5-5.1); Sodium 135 mmol/L (136-145)
[2021-11-24] MEDS: Levothyroxine Sodium 25 MCG TAB PO SCH (05:32)
[2021-11-24] MEDS: Apixaban 5 MG TAB PO SCH (08:58)
[2021-11-24] MEDS: Cholecalciferol 1,000 UNITS (25 MCG) TAB PO SCH (08:59)
[2021-11-24] MEDS ORDERED: Furosemide 20 MG TAB PO SCH (09:00)
[2021-11-24] MEDS: Famotidine 20 MG TAB PO SCH (09:00)
[2021-11-24] MEDS: Diltiazem HCl CD 300 mg Capsule PO SCH (09:00)
[2021-11-24 11:59] VITALS: BP 144/65; TEMP 98.4
== END 2021-11-24 14:04 | disposition home or self-care (01) | DRG 291 ==
LOC: ERS 09:37 → ERHOLD 12:21 → 2SW 15:57 → OBSVTOIN 11-21 16:33
PROVIDERS: ADMIT Internal Medicine; ATTEND Internal Medicine
DX: I11.0 Hypertensive heart disease with heart failure (principal); I50.33 Acute on chronic diastolic (congestive) heart failure; I48.19 Other persistent atrial fibrillation; Z68.42 Body mass index [BMI] 45.0-49.9, adult; I24.8 Other forms of acute ischemic heart disease; Z20.822 Contact with and (suspected) exposure to COVID-19; E03.9 Hypothyroidism, unspecified; E78.5 Hyperlipidemia, unspecified; I25.10 Atherosclerotic heart disease of native coronary artery without angina pectoris; E66.9 Obesity, unspecified; Z28.21 Immunization not carried out because of patient refusal; Z85.3 Personal history of malignant neoplasm of breast; Z98.890 Other specified postprocedural states; Z91.14 Patient's other noncompliance with medication regimen; Z79.899 Other long term (current) drug therapy; Z79.82 Long term (current) use of aspirin; Z79.890 Hormone replacement therapy
CPT/HCPCS: 36415; 71045; 80048; 80053; 80061; 82550; 82553; 83036; 83690; 83735; 83880; 84443; 84484; 85025; 85610; 85730; 93005; 93306; 94760; 96372; 96374; 96375; 96376; G0378; J1650; J1940; J3490

== ENCOUNTER 2024-01-06 07:37 | Inpatient (IN) | payer MEDICARE ==
[2024-01-06 08:04] LABS: #Basophils 0.06 10x3/uL (0.0-0.2); %Basophils 0.6 % (0.0-1.0); %Eosinophils 2.6 % (0.0-10.0); %Lymphocytes 26.9 % (21.0-51.0); %Monocytes 5.8 % (0.0-10.0); %Neutrophils 63.5 % (42.0-75.0); Hematocrit 46.6 % (36.0-47.0); Mean Corpuscular HGB CONC 34.3 g/dL (32.0-36.0); Mean Corpuscular Hemoglobin 34.7 pg (27.0-31.0); Mean Corpuscular Volume 101.1 fL (78.0-98.0); Mean Platelet Volume 10.9 fL (7.4-10.4); Platelet Count 228 10x3/uL (130-400); RBC Distribution Width 14.5 % (11.5-14.5); Red Blood Cell (RBC) Count 4.61 mill/uL (4.20-5.40)
[2024-01-06 08:16] LABS: ALT (SGPT) 36 U/L (8-55); AST (SGOT) 47 U/L (5-34); Albumin 3.6 g/dL (3.4-4.8); Alkaline Phosphatase 107 U/L (40-110); Anion Gap 16 mmol/L (10-20); BUN (Urea Nitrogen) 20 mg/dL (9.8-20.1); Bilirubin, Total 0.9 mg/dL (0.2-1.2); Calc. Creatinine Clearance 0 mL/min (70-130); Calcium 9.1 mg/dL (7.8-10.44); Carbon Dioxide 19 mmol/L (23-31); Chloride 107 mmol/L (98-107); Estimated GFR 45; Globulin 4.1 g/dL (2.4-3.5); Glucose 160 mg/dL (80-115); Potassium 4.1 mmol/L (3.5-5.1); Protein, Total 7.7 g/dL (5.8-8.1); Sodium 138 mmol/L (136-145)
[2024-01-06 08:22] LABS: Troponin I Less than 0.010 ng/mL (< 0.028)
[2024-01-06] MEDS ORDERED: Furosemide 40 MG (4 mL) VIAL ONE ×2 (08:30→14:52)
[2024-01-06 08:47] LABS: Actual Bicarbonate (HCO3v) 20.3 mEq/L (22-28); Analyzer IN Cardio ER; Calcium, Ionized (venous) 1.13 mmol/L (1.16-1.32); Chloride (VBG) 105 mmol/L (98-106); Hematocrit-VBG 50 % (36.0-47.0); Hemoglobin (Hb) 16.9 g/dL (11.7-16.1); Sodium 140 mmol/L (133-146); pH (venous) 7.417 (7.32-7.43)
[2024-01-06 11:43] LABS: Troponin I 0.012 ng/mL (< 0.028)
[2024-01-06] MEDS: Furosemide 40 MG (4 mL) VIAL SLOW IVP SCH (14:50)
[2024-01-06 16:48] VITALS: BMI 50.2
[2024-01-06] MEDS: Apixaban 5 MG TAB PO SCH (20:26)
[2024-01-06] MEDS: Sacubitril 24MG/Valsartan 26 MG TAB PO SCH (20:26)
[2024-01-06] MEDS: Acetaminophen 325 MG TAB PO PRN (21:07)
[2024-01-07 03:58] LABS: #Basophils 0.05 10x3/uL (0.0-0.2); %Basophils 0.6 % (0.0-1.0); %Eosinophils 3.2 % (0.0-10.0); %Lymphocytes 25.9 % (21.0-51.0); %Monocytes 7.3 % (0.0-10.0); %Neutrophils 62.7 % (42.0-75.0); Hematocrit 46.6 % (36.0-47.0); Hemoglobin 16.4 g/dL (12.0-16.0); Mean Corpuscular HGB CONC 35.2 g/dL (32.0-36.0); Mean Corpuscular Hemoglobin 34.2 pg (27.0-31.0); Mean Corpuscular Volume 97.1 fL (78.0-98.0); Mean Platelet Volume 11.1 fL (7.4-10.4); Platelet Count 193 10x3/uL (130-400)
[2024-01-07 04:40] LABS: Anion Gap 13 mmol/L (10-20); BUN (Urea Nitrogen) 15 mg/dL (9.8-20.1); Calc. Creatinine Clearance 117 mL/min (70-130); Calcium 8.7 mg/dL (7.8-10.44); Carbon Dioxide 19 mmol/L (23-31); Chloride 108 mmol/L (98-107); Estimated GFR 91; Glucose 114 mg/dL (80-115); Potassium 3.5 mmol/L (3.5-5.1); Sodium 136 mmol/L (136-145)
[2024-01-07 05:00] LABS: Free T4 (Free Thyroxine) 1.02 ng/dL (0.70-1.48); Thyroid Stimulating Hormone 4.2064 uIU/mL (0.35-4.94)
[2024-01-07] MEDS: Levothyroxine Sodium 25 MCG TAB PO SCH (05:48)
[2024-01-07] MEDS: dilTIAZem CD 120 MG CAP PO SCH (09:02)
[2024-01-07] MEDS: Dapagliflozin Propanediol 10 MG TAB PO SCH ×2 (21:13→21:16)
[2024-01-07] MEDS: Ketorolac Tromethamine 30 MG (1 mL) VIAL IVP SCH (21:14)
[2024-01-08 07:37] LABS: #Basophils 0.06 10x3/uL (0.0-0.2); %Basophils 0.6 % (0.0-1.0); %Eosinophils 3.3 % (0.0-10.0); %Lymphocytes 28.7 % (21.0-51.0); %Monocytes 6.4 % (0.0-10.0); %Neutrophils 60.6 % (42.0-75.0); Hematocrit 52.2 % (36.0-47.0); Hemoglobin 18.5 g/dL (12.0-16.0); Mean Corpuscular HGB CONC 35.4 g/dL (32.0-36.0); Mean Corpuscular Hemoglobin 34.5 pg (27.0-31.0); Mean Corpuscular Volume 97.4 fL (78.0-98.0); Mean Platelet Volume 11.1 fL (7.4-10.4); Platelet Count 244 10x3/uL (130-400); RBC Distribution Width 14.1 % (11.5-14.5); Red Blood Cell (RBC) Count 5.36 mill/uL (4.20-5.40)
[2024-01-08 07:56] LABS: Anion Gap 17 mmol/L (10-20); BUN (Urea Nitrogen) 23 mg/dL (9.8-20.1); Calc. Creatinine Clearance 82 mL/min (70-130); Calcium 9.4 mg/dL (7.8-10.44); Carbon Dioxide 18 mmol/L (23-31); Chloride 106 mmol/L (98-107); Estimated GFR 59; Glucose 117 mg/dL (80-115); Potassium 3.7 mmol/L (3.5-5.1); Sodium 137 mmol/L (136-145)
[2024-01-08] MEDS: Digoxin 0.5 MG/2 ML AMP SLOW IVP SCH (18:13)
[2024-01-09 04:50] LABS: #Basophils 0.07 10x3/uL (0.0-0.2); %Basophils 0.8 % (0.0-1.0); %Eosinophils 4.3 % (0.0-10.0); %Lymphocytes 27.4 % (21.0-51.0); %Neutrophils 59.1 % (42.0-75.0); Hematocrit 51.2 % (36.0-47.0); Hemoglobin 18.1 g/dL (12.0-16.0); Mean Corpuscular HGB CONC 35.4 g/dL (32.0-36.0); Mean Corpuscular Hemoglobin 34.8 pg (27.0-31.0); Mean Corpuscular Volume 98.5 fL (78.0-98.0); Platelet Count 231 10x3/uL (130-400)
[2024-01-09 05:05] LABS: Anion Gap 16 mmol/L (10-20); BUN (Urea Nitrogen) 26 mg/dL (9.8-20.1); Calc. Creatinine Clearance 79 mL/min (70-130); Calcium 9.6 mg/dL (7.8-10.44); Carbon Dioxide 20 mmol/L (23-31); Chloride 106 mmol/L (98-107); Estimated GFR 56; Glucose 110 mg/dL (80-115); Potassium 3.8 mmol/L (3.5-5.1); Sodium 138 mmol/L (136-145)
[2024-01-09] MEDS: Digoxin 0.125 MG TAB PO SCH ×2 (08:55→13:10)
[2024-01-09] MEDS: Spironolactone 25 MG TAB PO SCH (09:59)
[2024-01-10] MEDS ORDERED: Digoxin 0.25 MG TAB PO SCH (09:00)
[2024-01-10] MEDS: Digoxin 0.125 MG TAB PO SCH ×2 (09:01→14:28)
[2024-01-10] MEDS: Spironolactone 25 MG TAB PO SCH (09:02)
[2024-01-10] MEDS: dilTIAZem 30 MG TAB PO SCH (20:29)
[2024-01-11 05:07] LABS: Digoxin 0.52 ng/mL (0.8-2.0)
[2024-01-11] MEDS: Digoxin 0.125 MG TAB PO SCH (08:32)
[2024-01-12] MEDS: traMADol HCl 50 MG TAB PO SCH (05:12)
[2024-01-12 11:01] VITALS: TEMP 97.8
[2024-01-12 21:17] VITALS: BP 115/73
== END 2024-01-13 15:20 | disposition home or self-care (01) | DRG 291 ==
LOC: ERS 07:37 → ERHOLD 10:20 → 2NO 16:21
PROVIDERS: ADMIT Internal Medicine; ATTEND Internal Medicine
DX: I11.0 Hypertensive heart disease with heart failure (principal); I50.33 Acute on chronic diastolic (congestive) heart failure; I48.20 Chronic atrial fibrillation, unspecified; Z68.43 Body mass index [BMI] 50.0-59.9, adult; I48.92 Unspecified atrial flutter; I25.10 Atherosclerotic heart disease of native coronary artery without angina pectoris; E03.9 Hypothyroidism, unspecified; E78.5 Hyperlipidemia, unspecified; E66.01 Morbid (severe) obesity due to excess calories; Z85.3 Personal history of malignant neoplasm of breast; Z79.890 Hormone replacement therapy; Z79.01 Long term (current) use of anticoagulants; Z79.899 Other long term (current) drug therapy; Z91.148 Patient's other noncompliance with medication regimen for other reason
CPT/HCPCS: 36415; 71045; 80048; 80053; 80162; 82805; 83880; 84439; 84443; 84481; 84484; 85025; 85379; 93005; 93306; 96374; 97139; J1160; J1885; J1940

== ENCOUNTER 2024-09-23 10:58 | Outpatient (CLI) | payer MEDICARE | END 2024-09-23 10:59 | disposition home or self-care (01) | LOC: BICMAMMO 10:58 | PROVIDERS: ATTEND Family Medicine | DX: Z13.820 Encounter for screening for osteoporosis (principal); Z78.0 Asymptomatic menopausal state | CPT/HCPCS: 77080 ==

== ENCOUNTER 2024-09-30 08:08 | Outpatient (CLI) | payer MEDICARE | END 2024-09-30 08:09 | disposition home or self-care (01) | LOC: BICRAD 08:08 | PROVIDERS: ATTEND Family Medicine | DX: M25.562 Pain in left knee (principal) ==